=== PATIENT | female | born 1985 | race Caucasian/White ===

== ENCOUNTER 2022-05-16 04:26 | Observation (INO) ==
[2022-05-16] MEDS ORDERED: MORPHINE 2 MG/1 ML SYRINGE IV STA (05:26)
[2022-05-16] MEDS ORDERED: ONDANSETRON 4 MG/2 ML VIAL IV ONE ×2 (05:53→10:03)
[2022-05-16 06:06] LABS: Basophils # 0.1 10*3/uL (0.0-0.2); Basophils % 0.4 % (0.0-0.8); Eosinophils % 0.1 % (0.00-10.9); Hematocrit 35.4 VOL% (35.7-47.0); Hemoglobin 11.7 GM/DL (12.0-16.0); Immature Granulocytes Absolute 0.19 #; Lymphocytes # 0.7 10*3/uL (1.4-4.0); Lymphocytes % 4.1 % (21.3-54.2); Mean Corpuscular HGB Conc 33.1 GM/DL (32-36); Mean Corpuscular Volume 92.4 FL (87-102); Monocytes # 1.6 10*3/uL (0.11-0.8); Monocytes % 8.7 % (1.7-12.7); Neutrophils % 85.7 % (38.7-73.9); Platelet Count 248 T/CUMM (130-400); Red Blood Count 3.83 MC/CUMM (3.8-5.5); White Blood Count 18.1 T/CUMM (4-12)
[2022-05-16 06:14] LABS: Glucose,Urine (UA) Negative (Negative); Protein,Urine 100 mg/dL (Negative); Urine Appearance Clear (Clear); Urine Color Yellow (Yellow)
[2022-05-16 06:15] LABS: Bilirubin,Urine Small mg/dL (Negative); Blood, Urine Negative (Negative); Ketones,Urine 40 mg/dL (Negative); Nitrite,Urine Negative (Negative)
[2022-05-16 06:18] LABS: Bacteria,Urine Moderate /HPF (Few); Mucus,Urine Occasional /LPF (Occasional); RBC,Urine 5 /HPF (0-4); Squamous Epithelial Cell,Urine Occasional /HPF (0-10)
[2022-05-16 06:27] LABS: Albumin 2.7 G/DL (3.4-5.0); Bilirubin,Total 0.7 MG/DL (0.20-1.00); Calcium 9.5 MG/DL (8.5-10.1); Osmolality,Calculated 277.4 MOS/KG (273-304); Potassium 3.2 MMOL/L (3.5-5.1); Total Protein 6.9 G/DL (6.4-8.2)
[2022-05-16 07:35] LABS: Lymphocytes 6 % (20-55); Total Cells Counted 100
[2022-05-16 07:36] LABS: Platelet Estimate Adequate
[2022-05-16] MEDS ORDERED: PIPERACILLIN/TAZOBACTAM 3,375 MG in SODIUM CHLORIDE 0.9% 100 ML IV STA (07:51)
[2022-05-16] MEDS ORDERED: HYDROmorphone 1 MG/1 ML SYRINGE IV STA (10:03)
[2022-05-16] MEDS ORDERED: CLINDAMYCIN INJ 900 MG/50 ML PREMIX IV ONE (10:16)
[2022-05-16] MEDS ORDERED: ONDANSETRON 4 MG/2 ML VIAL IV PRN ×2 (10:21→17:57)
[2022-05-16] MEDS ORDERED: PROMETHAZINE 25 MG/1 ML VIAL IM PRN (10:21)
[2022-05-16] MEDS ORDERED: ACETAMINOPHEN 325 MG TABLET PO PRN (10:21)
[2022-05-16] MEDS: LACTATED RINGERS 1,000 ML IV SCH ×2 (10:45→18:30)
[2022-05-16] MEDS: HYDROmorphone 1 MG/1 ML SYRINGE IV PRN ×3 (10:47→18:00)
[2022-05-16] MEDS ORDERED: LIDOCAINE 1%/EPI INJ 20 ML VIAL ONE (12:13)
[2022-05-16] MEDS ORDERED: BUPIVACAINE MPF 0.25% 10 ML VIAL ONE (12:13)
[2022-05-16] MEDS ORDERED: FAMOTIDINE 20 MG TABLET PO ONE (12:58)
[2022-05-16] MEDS ORDERED: fentaNYL 100 MCG/2 ML VIAL ONE (17:03)
[2022-05-16] MEDS ORDERED: LIDOCAINE 2% 5 ML VIAL ONE (17:20)
[2022-05-16] MEDS ORDERED: ONDANSETRON 4 MG/2 ML VIAL ONE (17:20)
[2022-05-16] MEDS ORDERED: propofoL 200 MG/20 ML VIAL IV ONE (17:20)
[2022-05-16] MEDS ORDERED: DEXAMETHASONE 4 MG/1 ML VIAL ONE ×2 (17:20)
[2022-05-16] MEDS ORDERED: ACETAMINOPHEN INJ 1,000 MG/100 ML VIAL IV ONE (17:21)
[2022-05-16] MEDS: PIPERACILLIN/TAZOBACTAM 3,375 MG in SODIUM CHLORIDE 0.9% 100 ML IV SCH (18:23)
[2022-05-16] MEDS: ESCITALOPRAM 10 MG TABLET PO SCH (21:01)
[2022-05-16] MEDS: METOPROLOL TARTRATE 50 MG TABLET PO SCH (21:02)
[2022-05-17] MEDS: PIPERACILLIN/TAZOBACTAM 3,375 MG in SODIUM CHLORIDE 0.9% 100 ML IV SCH (00:05)
[2022-05-17] MEDS: LACTATED RINGERS 1,000 ML IV SCH ×2 (02:30→05:29)
[2022-05-17] MEDS ORDERED: ENOXAPARIN 40 MG/0.4 ML SYRINGE SUBCUT SCH (04:30)
[2022-05-17] MEDS: HYDROmorphone 1 MG/1 ML SYRINGE IV PRN (06:46)
[2022-05-17 06:56] LABS: Basophils % 0.2 % (0.0-0.8); Eosinophils % 0.1 % (0.00-10.9); Hematocrit 32.1 VOL% (35.7-47.0); Hemoglobin 10.7 GM/DL (12.0-16.0); Immature Granulocytes % 1.9 %; Immature Granulocytes Absolute 0.31 #; Lymphocytes # 0.8 10*3/uL (1.4-4.0); Mean Corpuscular HGB Conc 33.3 GM/DL (32-36); Mean Corpuscular Volume 92.8 FL (87-102); Mean Platelet Volume 9.4 FL (9.6-12.0); Monocytes # 0.7 10*3/uL (0.11-0.8); Neutrophils % 88.8 % (38.7-73.9); Platelet Count 255 T/CUMM (130-400); Red Blood Count 3.46 MC/CUMM (3.8-5.5); Red Cell Distribution Width 12.6 % (9.3-17.3); White Blood Count 16.3 T/CUMM (4-12)
[2022-05-17 07:17] LABS: Band Neutrophils 2 % (0-10); Lymphocytes 10 % (20-55); Platelet Estimate Adequate; Total Cells Counted 100
[2022-05-17 07:31] LABS: Calcium 8.8 MG/DL (8.5-10.1); Osmolality,Calculated 284.1 MOS/KG (273-304); Potassium 3.2 MMOL/L (3.5-5.1)
[2022-05-17] MEDS ORDERED: POTASSIUM CHLORIDE 20 MEQ TABLET PO ONE (08:45)
[2022-05-17] MEDS ORDERED: CEFUROXIME 500 MG TABLET PO SCH (09:00)
[2022-05-17] MEDS ORDERED: PANTOPRAZOLE 40 MG TABLET PO SCH (09:00)
[2022-05-17] MEDS: ESCITALOPRAM 10 MG TABLET PO SCH (09:05)
[2022-05-17] MEDS: METOPROLOL TARTRATE 50 MG TABLET PO SCH (10:11)
[2022-05-17 11:41] VITALS: BP 133/74
== END 2022-05-17 14:00 | disposition home health service (06) ==
LOC: N.ED 04:26 → INTOOBSV 10:16 → N.EDINP 10:16 → N.3E 10:36
PROVIDERS: ADMIT Surgery; ATTEND Surgery